=== PATIENT | female | born 1995 | race Caucasian/White ===

== ENCOUNTER 2018-02-02 15:41 | Emergency (ER) | payer OTHER ==
[~2018-02-02] VITALS: Ht 170.2 cm; Wt 77.1 kg
[~2018-02-02 15:41] MED LIST: Norco 5-325 Ta1 EACH PO
[2018-02-02] MEDS ORDERED: HYDR1TAB94 PO (17:04)
== END 2018-02-02 17:20 | disposition home or self-care (01) ==
LOC: ER 15:41
DX: S43.015A Anterior dislocation of left humerus, initial encounter (principal); V89.2XXA Person injured in unspecified motor-vehicle accident, traffic, initial encounter
CPT/HCPCS: 23650; 73020; 73030; 96374; 99283; J2060; J3360

== ENCOUNTER 2020-02-04 10:40 | Emergency (ER) | payer OTHER ==
[~2020-02-04] VITALS: Ht 170.2 cm; Wt 79.4 kg
[~2020-02-04 10:40] MED LIST changes: +HYDR1TAB94 PO
[2020-02-04 11:30] LABS: Source, Urine Clean Catch
[2020-02-04 11:32] LABS: BASOPHILS ABSOLUTE AUTO 0.03 K/mm3 (0.00-0.23); BASOPHILS PERCENT AUTO 0 % (0-2); EOSINOPHILS ABSOLUTE AUTO 0.12 K/mm3 (0.00-0.68); EOSINOPHILS PERCENT AUTO 1 % (0-6); Hematocrit 43.4 % (33.0-51.0); Hemoglobin 14.7 g/dL (11.5-16.0); IMMATURE GRAN ABSOLUTE AUTO 0.03 K/mm3 (0.00-0.10); IMMATURE GRAN PERCENT AUTO 0 % (0-1); LYMPHOCYTES ABSOLUTE AUTO 1.92 K/mm3 (0.84-5.20); LYMPHOCYTES PERCENT AUTO 20 % (21-46); MONOCYTES ABSOLUTE AUTO 0.62 K/mm3 (0.16-1.47); MONOCYTES PERCENT AUTO 7 % (4-13); Mean Corpuscular HGB 28.8 pg (26.0-34.0); Mean Corpuscular HGB Conc 33.9 g/dL (31.5-36.5); Mean Corpuscular Volume 85 fL (80-100); Mean Platelet Volume 9.1 fL (9.1-12.4); NEUTROPHILS ABSOLUTE AUTO 6.76 K/mm3 (1.96-9.15); NEUTROPHILS PERCENT AUTO 71 % (41-73); Platelet Count 336 K/mm3 (150-400); RDW Coefficient Variation 11.9 % (11.7-14.2); RDW Standard Deviation 36.3 fL (35.1-46.3); White Blood Cell Count 9.48 K/mm3 (4.00-11.30)
[2020-02-04 11:33] LABS: Bilirubin, Urine Neg (Neg); Blood, Urine Neg (Neg); Glucose Qualitative, Urine Neg (Neg); Ketones, Urine 4+ (Neg); Leukocyte Esterase, Urine Neg (Neg); Nitrite, Urine Neg (Neg); Protein, Urine 2+ (Neg); Urobilinogen, Urine 1+ (Normal)
[2020-02-04 11:50] LABS: Appearance, Urine Hazy (Clear); Color, Urine Yellow (P-Yellow)
[2020-02-04 11:52] LABS: Bacteria Mod /hpf; Red Blood Cells, Urine 0-2 /hpf (0-2); Squamous Epithelial Cells Mod /hpf (Few)
[2020-02-04 11:54] LABS: Alanine Aminotransfer (ALT/SGP 130 U/L (12-78); Albumin, Blood 3.9 g/dL (3.4-5.0); Albumin/Globulin Ratio 0.9 (0.8-1.8); Alk Phos 55 U/L (50-136); Anion Gap 6 mmol/L (6-16); Aspartate Aminotrans (AST/SGOT 50 U/L (12-37); Blood Urea Nitrogen 7 mg/dL (8-24); Bun/Creatinine Ratio 13.4 (12.0-20.0); CO2, Blood 24 mmol/L (21-32); Calcium, Blood 8.8 mg/dL (8.5-10.1); Chloride, Blood 107 mmol/L (98-108); Creatinine, Blood 0.52 mg/dL (0.40-1.00); Globulin, Blood 4.2 g/dL (2.2-4.0); Glomerular Filtration Rate >60 (60-); Glucose, Blood 98 mg/dL (70-99); Potassium, Blood 3.5 mmol/L (3.5-5.5); Sodium, Blood 137 mmol/L (136-145); Total Protein, Blood 8.1 g/dL (6.4-8.2)
[2020-02-04] MEDS ORDERED: ONDA4ODT MM (12:58)
== END 2020-02-04 13:01 | disposition home or self-care (01) ==
LOC: ER 10:40
PROVIDERS: Physician Assistant
DX: O21.9 Vomiting of pregnancy, unspecified (principal)
CPT/HCPCS: 36415; 80053; 81001; 81025; 83690; 85025; 87086; 96361; 96374; 99284-25; J2405; J7030

== ENCOUNTER 2020-09-23 11:25 | Inpatient (IN) | payer OTHER ==
[~2020-09-23] VITALS: Ht 170.2 cm; Wt 87.0 kg
[~2020-09-23 11:25] MED LIST changes: +ONDA4ODT MM
--- NOTE | 2020-09-23 13:03 | NUR ---
LABS DRAWN FROM IV START PER PROTOCOL
[2020-09-23 13:23] LABS: BASOPHILS ABSOLUTE AUTO 0.05 K/mm3 (0.00-0.23); BASOPHILS PERCENT AUTO 0 % (0-2); EOSINOPHILS ABSOLUTE AUTO 0.11 K/mm3 (0.00-0.68); EOSINOPHILS PERCENT AUTO 1 % (0-6); Hematocrit 41.6 % (33.0-51.0); Hemoglobin 13.4 g/dL (11.5-16.0); IMMATURE GRAN ABSOLUTE AUTO 0.15 K/mm3 (0.00-0.10); IMMATURE GRAN PERCENT AUTO 1 % (0-1); LYMPHOCYTES ABSOLUTE AUTO 2.85 K/mm3 (0.84-5.20); LYMPHOCYTES PERCENT AUTO 22 % (21-46); MONOCYTES PERCENT AUTO 8 % (4-13); Mean Corpuscular HGB Conc 32.2 g/dL (31.5-36.5); Mean Corpuscular Volume 87 fL (80-100); Mean Platelet Volume 9.7 fL (9.1-12.4); NEUTROPHILS ABSOLUTE AUTO 8.99 K/mm3 (1.96-9.15); NEUTROPHILS PERCENT AUTO 68 % (41-73); Platelet Count 348 K/mm3 (150-400); RDW Coefficient Variation 13.2 % (11.7-14.2); RDW Standard Deviation 41.4 fL (35.1-46.3); Red Blood Cell Count 4.78 M/mm3 (3.80-5.20); White Blood Cell Count 13.25 K/mm3 (4.00-11.30)
[2020-09-23 20:23] LABS: PCO2 Cord - Arterial 54.2 mmHg (40-50); PO2 Cord - Arterial < 13 mmHg (16-20); pH Cord - Arterial 7.27 (7.28-7.35)
[2020-09-23 20:25] LABS: PCO2 Cord - Venous 44.9 mmHg (40-50); PO2 Cord - Venous 20.4 mmHg (28-32); pH Umbilical Cord - Venous 7.32 (7.26-7.35)
--- NOTE | 2020-09-23 20:26 | NUR ---
RT STOOD BY FOR C SECTION. BABY WAS DELIVERED TO WARMER. NO CHEST RISE NOTED, MOUTH AND NOSE WERE SUCTIONED WITH BULB SYRINGE AND PPV WAS STARTED AT PIP 20 CM H2O AND PEEP 5 CM H2O FOR APPROX 1 MIN, THEN BABY HAD STRONG CRY AND COLOR IMPROVED. NO RESP DISTRESS NOTED. RT EXCUSED. RN TO CALL IF RT NEEDED.
[2020-09-24 06:29] LABS: BASOPHILS ABSOLUTE AUTO 0.03 K/mm3 (0.00-0.23); BASOPHILS PERCENT AUTO 0 % (0-2); EOSINOPHILS ABSOLUTE AUTO 0.07 K/mm3 (0.00-0.68); EOSINOPHILS PERCENT AUTO 1 % (0-6); Hemoglobin 11.2 g/dL (11.5-16.0); IMMATURE GRAN ABSOLUTE AUTO 0.11 K/mm3 (0.00-0.10); IMMATURE GRAN PERCENT AUTO 1 % (0-1); LYMPHOCYTES ABSOLUTE AUTO 2.56 K/mm3 (0.84-5.20); LYMPHOCYTES PERCENT AUTO 17 % (21-46); MONOCYTES ABSOLUTE AUTO 0.79 K/mm3 (0.16-1.47); MONOCYTES PERCENT AUTO 5 % (4-13); Mean Corpuscular Volume 88 fL (80-100); Mean Platelet Volume 9.4 fL (9.1-12.4); NEUTROPHILS ABSOLUTE AUTO 11.17 K/mm3 (1.96-9.15); NEUTROPHILS PERCENT AUTO 76 % (41-73); Platelet Count 285 K/mm3 (150-400); RDW Standard Deviation 41.2 fL (35.1-46.3); White Blood Cell Count 14.73 K/mm3 (4.00-11.30)
--- NOTE | 2020-09-24 09:41 | NUR ---
RN ROUNDED TO HELP W/ . MOM REPORTS HAS BEEN GOING WELL. ATTEMPTED TO LATCH NB, NB WOULD LATCH FOR A FEW SECONDS THEN STOP AND GAG A LITTLE BIT, IF SHE WERE WORKING UP AMNIOTIC FLUID, NB NOT IN DISTRESS. INSTRUCT/DEMO WIDENING LATCH, CORRECT POSITIONING AND NIPPLE SHAPE AFTER FEEDS. INFORMATION GIVEN TO PT ABOUT AND MARIJUANA USE AND NUTRITION DURING . PT VERBALIZED UNDERSTANDING, DENIES ANY FURTHER QUESTIONS OR CONCERNS. FURTHER SUPPORT OFFERED IF PT DESIRES.
--- NOTE | 2020-09-24 10:53 | NUR ---
09/24/20 1053 Kathi Floyd VERIFICATION: EDIT CHART.
--- NOTE | 2020-09-24 18:05 | NUR ---
PT R/T ROOM FROM AMBULATING TO THE CAFETERIA WITH S.O. NO COMPLAINTS. TYREL WELL.
[2020-09-25] MEDS ORDERED: Percocet 5-3251 EACH PO (09:37)
[2020-09-25] MEDS ORDERED: DOC250 PO (09:38)
[2020-09-25] MEDS ORDERED: IBUP800 PO (09:38)
--- NOTE | 2020-09-25 11:23 | NUR ---
UP AND ABOUT IN ROOM, TOLERATING WELL. CARING FOR SELF AND BABY. DISCHARGE INSTRUCTIONS REVIEWED WITH AND COPY GIVEN TO PATIENT
--- NOTE | 2020-09-25 11:25 | NUR ---
FLU VACCINE AND TDAP PATIENT REFUSED BOTH FLU VACCINE AND TDAP
== END 2020-09-25 10:45 | disposition home or self-care (01) | DRG 788 ==
LOC: OBS 11:25 → BC 11:25 → OBS 11:53 → BC 23:15
PROVIDERS: ADMIT Obstetrics & Gynecology
PROC: 10D00Z1 Extraction of Products of Conception, Low, Open Approach (ICD-10-PCS; principal; 2020-09-23 16:00)
DX: O34.211 Maternal care for low transverse scar from previous cesarean delivery (principal); Z37.0 Single live birth; Z3A.38 38 weeks gestation of pregnancy; Z20.828 Contact with and (suspected) exposure to other viral communicable diseases
CPT/HCPCS: 36415; 82803; 85025; 86850; 86900; 86901; A9270; J0690; J1885; J2765; J3010; J7120; Q2038

== ENCOUNTER 2021-10-14 12:06 | Emergency (ER) | payer OTHER ==
[~2021-10-14] VITALS: Ht 170.2 cm; Wt 77.6 kg
[~2021-10-14 12:06] MED LIST changes: +DOC250 PO; +IBUP800 PO; +Percocet 5-3251 EACH PO
[2021-10-14] MEDS ORDERED: PRENATAL TABLE1 EAC2 PO (12:37)
== END 2021-10-14 15:07 | disposition home or self-care (01) ==
LOC: ER 12:06
DX: O98.511 Other viral diseases complicating pregnancy, first trimester (principal); U07.1 COVID-19; Z3A.11 11 weeks gestation of pregnancy
CPT/HCPCS: 99285

== ENCOUNTER 2021-10-21 10:42 | Emergency (ER) | payer OTHER ==
[~2021-10-21] VITALS: Ht 170.2 cm; Wt 80.7 kg
[~2021-10-21 10:42] MED LIST changes: +PRENATAL TABLE1 EAC2 PO
[2021-10-21 11:28] LABS: BASOPHILS ABSOLUTE AUTO 0.01 K/mm3 (0.00-0.23); BASOPHILS PERCENT AUTO 0 % (0-2); EOSINOPHILS ABSOLUTE AUTO 0.14 K/mm3 (0.00-0.68); EOSINOPHILS PERCENT AUTO 3 % (0-6); Hematocrit 41.2 % (33.0-51.0); Hemoglobin 13.9 g/dL (11.5-16.0); IMMATURE GRAN ABSOLUTE AUTO 0.02 K/mm3 (0.00-0.10); IMMATURE GRAN PERCENT AUTO 0 % (0-1); LYMPHOCYTES ABSOLUTE AUTO 1.17 K/mm3 (0.84-5.20); LYMPHOCYTES PERCENT AUTO 21 % (21-46); MONOCYTES ABSOLUTE AUTO 0.47 K/mm3 (0.16-1.47); MONOCYTES PERCENT AUTO 9 % (4-13); Mean Corpuscular HGB Conc 33.7 g/dL (31.5-36.5); Mean Corpuscular Volume 86 fL (80-100); Mean Platelet Volume 9.7 fL (9.1-12.4); NEUTROPHILS PERCENT AUTO 67 % (41-73); Platelet Count 163 K/mm3 (150-400); RDW Coefficient Variation 11.9 % (11.7-14.2); RDW Standard Deviation 38.1 fL (35.1-46.3); Red Blood Cell Count 4.79 M/mm3 (3.80-5.20); White Blood Cell Count 5.51 K/mm3 (4.00-11.30)
[2021-10-21 11:53] LABS: Alanine Aminotransfer (ALT/SGP 42 U/L (12-78); Albumin/Globulin Ratio 0.8 (0.8-1.8); Alk Phos 64 U/L (50-136); Anion Gap 6 mmol/L (6-16); Aspartate Aminotrans (AST/SGOT 29 U/L (12-37); Bilirubin, Total 0.3 mg/dL (0.1-1.0); Blood Urea Nitrogen 5 mg/dL (8-24); Bun/Creatinine Ratio 9.1 (12.0-20.0); CO2, Blood 26 mmol/L (21-32); Calcium, Blood 8.3 mg/dL (8.5-10.1); Chloride, Blood 107 mmol/L (98-108); Creatinine, Blood 0.55 mg/dL (0.40-1.00); Globulin, Blood 3.7 g/dL (2.2-4.0); Glomerular Filtration Rate >60 (60-); Glucose, Blood 93 mg/dL (70-99); Potassium, Blood 3.5 mmol/L (3.5-5.5); Sodium, Blood 139 mmol/L (136-145); Total Protein, Blood 6.7 g/dL (6.4-8.2)
== END 2021-10-21 13:21 | disposition left against medical advice (07) ==
LOC: ER 10:42
PROVIDERS: Emergency Medicine
DX: Z53.21 Procedure and treatment not carried out due to patient leaving prior to being seen by health care provider (principal)
CPT/HCPCS: 36415; 80053; 83690; 85025

== ENCOUNTER 2022-04-24 05:55 | Inpatient (IN) | payer OTHER ==
[~2022-04-24] VITALS: Ht 170.2 cm; Wt 87.3 kg
[2022-04-24 06:42] LABS: BASOPHILS ABSOLUTE AUTO 0.04 K/mm3 (0.00-0.23); BASOPHILS PERCENT AUTO 0 % (0-2); EOSINOPHILS PERCENT AUTO 2 % (0-6); Hematocrit 37.2 % (33.0-51.0); Hemoglobin 12.5 g/dL (11.5-16.0); IMMATURE GRAN ABSOLUTE AUTO 0.12 K/mm3 (0.00-0.10); IMMATURE GRAN PERCENT AUTO 1 % (0-1); LYMPHOCYTES ABSOLUTE AUTO 3.06 K/mm3 (0.84-5.20); LYMPHOCYTES PERCENT AUTO 25 % (21-46); MONOCYTES ABSOLUTE AUTO 0.98 K/mm3 (0.16-1.47); MONOCYTES PERCENT AUTO 8 % (4-13); Mean Corpuscular HGB 28.2 pg (26.0-34.0); Mean Corpuscular HGB Conc 33.6 g/dL (31.5-36.5); Mean Corpuscular Volume 84 fL (80-100); Mean Platelet Volume 10.4 fL (9.1-12.4); NEUTROPHILS ABSOLUTE AUTO 7.63 K/mm3 (1.96-9.15); NEUTROPHILS PERCENT AUTO 64 % (41-73); Platelet Count 332 K/mm3 (150-400); RDW Coefficient Variation 13.4 % (11.7-14.2); Red Blood Cell Count 4.43 M/mm3 (3.80-5.20); White Blood Cell Count 12.03 K/mm3 (4.00-11.30)
--- NOTE | 2022-04-24 08:16 | NUR ---
04/24/22 0816 Teresa Matias VIABLE MALE INFANT BORN AT 0807, APAGR 07/24, CORD BLOOD SEND CIELO STRATTON RN, CORD GASES OBTAINED AND GIVEN TO RT DWAIN. PLACENTA DELIVERED MANUALLY AND COMPLETE.
[2022-04-24 08:22] LABS: PCO2 Cord - Arterial 48.9 mmHg (40-50); PO2 Cord - Arterial 24.1 mmHg (16-20); pH Cord - Arterial 7.32 (7.28-7.35)
[2022-04-24 08:23] LABS: PCO2 Cord - Venous 46.4 mmHg (40-50); PO2 Cord - Venous 28.5 mmHg (28-32); pH Umbilical Cord - Venous 7.33 (7.26-7.35)
[2022-04-25 05:51] LABS: BASOPHILS ABSOLUTE AUTO 0.06 K/mm3 (0.00-0.23); BASOPHILS PERCENT AUTO 1 % (0-2); EOSINOPHILS PERCENT AUTO 2 % (0-6); Hematocrit 32.5 % (33.0-51.0); Hemoglobin 10.6 g/dL (11.5-16.0); IMMATURE GRAN ABSOLUTE AUTO 0.11 K/mm3 (0.00-0.10); IMMATURE GRAN PERCENT AUTO 1 % (0-1); LYMPHOCYTES ABSOLUTE AUTO 2.82 K/mm3 (0.84-5.20); LYMPHOCYTES PERCENT AUTO 22 % (21-46); MONOCYTES ABSOLUTE AUTO 0.89 K/mm3 (0.16-1.47); MONOCYTES PERCENT AUTO 7 % (4-13); Mean Corpuscular HGB 28.2 pg (26.0-34.0); Mean Corpuscular HGB Conc 32.6 g/dL (31.5-36.5); Mean Corpuscular Volume 86 fL (80-100); Mean Platelet Volume 9.3 fL (9.1-12.4); NEUTROPHILS ABSOLUTE AUTO 8.81 K/mm3 (1.96-9.15); NEUTROPHILS PERCENT AUTO 68 % (41-73); Platelet Count 244 K/mm3 (150-400); RDW Coefficient Variation 13.4 % (11.7-14.2); RDW Standard Deviation 42.2 fL (35.1-46.3); Red Blood Cell Count 3.76 M/mm3 (3.80-5.20); White Blood Cell Count 12.99 K/mm3 (4.00-11.30)
--- NOTE | 2022-04-25 11:59 | NUR ---
PT'S LAST BLOOD PRESSURE OF 136/97. PT WAS JUST UP AT THE WINDOW TALKING TO FAMILY AND ALSO IN PAIN, REQUESTING PAIN MEDICATION. Ania CAI CNM VERBALLY NOTIFIED IN HALLWAY AND REVIEWED PAST BLOOD PRESSURE. PROVIDER UPDATED ON PT'S PAIN CONTROL THROUGH THE NIGHT. NO NEW ORDERS. RECEIVED.
--- NOTE | 2022-04-25 16:07 | NUR ---
pt medicated for pain, she wanted her meds at 1600, gave motrin and 1 perc with simethacone, pt reports doing well, just wants to stay ontop of her pain, currently 5/10 tolerable. without moving
[2022-04-25] MEDS ORDERED: Percocet 5-3251 EACH PO (20:48)
[2022-04-25] MEDS ORDERED: IBUP800 PO (20:49)
--- NOTE | 2022-04-26 10:49 | NUR ---
1038 dc home, with SO and baby, denies any questions, encouraged to call with any, has ppfu and dc instructions
== END 2022-04-26 10:35 | disposition home or self-care (01) | DRG 784 ==
LOC: BC 05:55
PROVIDERS: ADMIT Obstetrics & Gynecology
PROC: 10D00Z1 Extraction of Products of Conception, Low, Open Approach (ICD-10-PCS; principal; 2022-04-24 07:30)
PROC: 0UT77ZZ Resection of Bilateral Fallopian Tubes, Via Natural or Artificial Opening (ICD-10-PCS; 2022-04-24 07:30)
DX: O34.211 Maternal care for low transverse scar from previous cesarean delivery (principal); O99.324 Drug use complicating childbirth; Z30.2 Encounter for sterilization; K21.9 Gastro-esophageal reflux disease without esophagitis; Z86.16 Personal history of COVID-19; Z3A.39 39 weeks gestation of pregnancy; Z37.0 Single live birth; Z98.890 Other specified postprocedural states; Z79.899 Other long term (current) drug therapy; O99.62 Diseases of the digestive system complicating childbirth; F12.10 Cannabis abuse, uncomplicated
CPT/HCPCS: 36415; 82803; 85025; 86850; 86900; 86901; 88302; A9270; J0690; J1885; J2370; J2405; J2590; J2765; J3010; J7120

== ENCOUNTER 2023-04-07 15:37 | Emergency (ER) | payer OTHER ==
[~2023-04-07] VITALS: Ht 170.2 cm; Wt 79.4 kg
[2023-04-07 15:53] VITALS: BP 143/98
== END 2023-04-07 16:26 | disposition home or self-care (01) ==
LOC: ER 15:37
DX: S00.83XA Contusion of other part of head, initial encounter (principal); W22.8XXA Striking against or struck by other objects, initial encounter
CPT/HCPCS: 99282

== ENCOUNTER 2023-10-18 03:59 | Observation (INO) | payer OTHER ==
[~2023-10-18] VITALS: Ht 170.2 cm; Wt 76.8 kg
[2023-10-18] VITALS (17 sets, daily range): BP systolic 103–139; BP diastolic 55–88
[2023-10-18 04:18] LABS: BASOPHILS ABSOLUTE AUTO 0.03 K/mm3 (0.00-0.23); BASOPHILS PERCENT AUTO 0 % (0-2); EOSINOPHILS ABSOLUTE AUTO 0.05 K/mm3 (0.00-0.68); EOSINOPHILS PERCENT AUTO 1 % (0-6); Hematocrit 38.1 % (33.0-51.0); Hemoglobin 12.6 g/dL (11.5-16.0); IMMATURE GRAN ABSOLUTE AUTO 0.03 K/mm3 (0.00-0.10); IMMATURE GRAN PERCENT AUTO 0 % (0-1); LYMPHOCYTES ABSOLUTE AUTO 1.62 K/mm3 (0.84-5.20); LYMPHOCYTES PERCENT AUTO 17 % (21-46); MONOCYTES PERCENT AUTO 5 % (4-13); Mean Corpuscular HGB 28.8 pg (26.0-34.0); Mean Corpuscular HGB Conc 33.1 g/dL (31.5-36.5); Mean Corpuscular Volume 87 fL (80-100); Mean Platelet Volume 8.8 fL (9.1-12.4); NEUTROPHILS ABSOLUTE AUTO 7.53 K/mm3 (1.96-9.15); NEUTROPHILS PERCENT AUTO 77 % (41-73); Platelet Count 309 K/mm3 (150-400); RDW Coefficient Variation 12.2 % (11.7-14.2); RDW Standard Deviation 39.5 fL (35.1-46.3); Red Blood Cell Count 4.37 M/mm3 (3.80-5.20); White Blood Cell Count 9.76 K/mm3 (4.00-11.30)
[2023-10-18 04:38] LABS: Albumin, Blood 3.6 g/dL (3.4-5.0); Bilirubin, Total 0.3 mg/dL (0.1-1.0); Bun/Creatinine Ratio 23.5 (12.0-20.0); Calcium, Blood 8.2 mg/dL (8.5-10.1); Creatinine, Blood 0.68 mg/dL (0.40-1.00); Globulin, Blood 3.6 g/dL (2.2-4.0); Potassium, Blood 3.6 mmol/L (3.5-5.5); Total Protein, Blood 7.2 g/dL (6.4-8.2)
--- NOTE | 2023-10-18 06:47 | NUR ---
SHIFT SUMMARY PT ARRIVED ON THE UNIT WITHIN THE LAST HOUR. PAIN MEDICATION GIVEN PER EMAR AND IVF HAVE BEEN STARTED. PT IS RESTING COMFORTABLY AT THIS TIME. BED IS IN LOWEST POSITION, CALL LIGHT IS WITHIN REACH.
--- NOTE | 2023-10-18 13:38 | NUR ---
PT ARRIVED TO UNIT VIA GURN. IV IN LEFT AV FLUSHES WELL AND DRESSINGS IS WNL. Surgical site prepped with 2% Chlorhexidine cloth wipe. History, Chart, Medications and Allergies reviewed before start of procedure. Lungs clear T/O to Auscultation. Patient confirms NPO status and agrees with scheduled surgery. Pre-Op teaching done. Pt verbalizes understanding.
[2023-10-18] MEDS ORDERED: Norco 5-325 Ta1 EACH PO (15:54)
[2023-10-18] MEDS ORDERED: ONDA4ODT MM (15:55)
--- NOTE | 2023-10-18 19:07 | NUR ---
SHIFT SUMMARY S/P LAP DAY, 4 LAP WOUND GLUE SITES CDI. A&OX4, VSS/RA, VOIDING, AMB SBA, PAIN MANAGED WITH NORCO, TYREL PO. WILL REPORT TO ONCOMING NOC RN.
[2023-10-19 02:15] VITALS: BP 120/66
--- NOTE | 2023-10-19 05:17 | NUR ---
SHIFT SUMMARY NOC. PT A/O X4 THIS SHIFT. PT TOLERATING PO INTAKE AND VOIDING URINE. PT INDEPENDENT IN THE ROOM. PT'S 4 ANTERIOR ABDOMEN LAP SITES ARE C/D/I. PT REPORTS PASSING GAS. PT MEDICATED FOR PAIN WITH SOME RELIEF OF SYMPTOMS. PT AWAKE FREQUENTLY DURING ROUNDS. PT VERBALIZED THAT SHE WAS RESTING. CALL LIGHT IN REACH.
[2023-10-19 07:42] VITALS: BP 129/84
--- NOTE | 2023-10-19 09:30 | NUR ---
SHIFT SUMMARY PT A&OX4, VSS/RA, TYREL PO, VOIDING, AMB INDEPENDENTLY/DRESSED SELF, PAIN MANAGED, IV DC'D. DC INS PROVIDED. PT REP UNDERSTANDING THOSE INSTRUCTIONS. LEFT FLOOR VIA WC WITH IS/IT PROJECT MANAGER TO GO HOME WITH , WITH ALL PERSONAL POSSESSIONS INCLUDING DC INS; SCRIPTS READY FOR PICKUP AT PHARMACY PER PT.
== END 2023-10-19 09:32 | disposition home or self-care (01) ==
LOC: ER 03:59 → SURS 06:25
PROVIDERS: Emergency Medicine; Surgery; ADMIT Surgery
PROC: 0FT44ZZ Resection of Gallbladder, Percutaneous Endoscopic Approach (ICD-10-PCS; principal; 2023-10-18 14:00)
DX: K80.12 Calculus of gallbladder with acute and chronic cholecystitis without obstruction (principal); Z72.0 Tobacco use
CPT/HCPCS: 76705; 80053; 83690; 84703; 85025; 88304; 94762; 96361; 96365; 96375; 96376; 99285-25; A9270; G0378; J0295; J1100; J1170; J1885; J2250; J2405; J2704; J3010; J7030; J7120